=== PATIENT | female | born 1990 | race Two or more races ===

== ENCOUNTER 2022-08-21 11:26 | Emergency (ER) | payer OTHER ==
[~2022-08-21] VITALS: Ht 154.9 cm; Wt 62.0 kg
[2022-08-21 11:26] VITALS: BP 101/57
[2022-08-21 12:39] LABS: BASO % 0.2 % (0.0-1.0); HEMATOCRIT 39.8 % (36.0-47.0); HEMOGLOBIN 12.9 g/dl (12.0-15.5); LYMPH # 0.8 10^3/uL (1.5-5.0); MEAN CORPUSCULAR HEMOGLOBIN 31.9 pg (27.0-33.0); MEAN CORPUSCULAR HGB CONC 32.4 g/dl (32.0-36.5); MEAN CORPUSCULAR VOLUME 98.3 fl (80.0-96.0); MONO # 0.3 10^3/uL (0.0-0.8); MONO % 5.6 % (2.0-8.0); NEUTROPHILS # 4.3 10^3/uL (1.5-8.5); PLATELET COUNT, AUTOMATED 326 10^3/uL (150-450); RED BLOOD COUNT 4.05 10^6/uL (4.00-5.40); WHITE BLOOD COUNT 5.4 10^3/uL (4.0-10.0)
[2022-08-21] MEDS ORDERED: NS 1,000 ML IV ONE (12:50)
[2022-08-21] MEDS ORDERED: ONDANSETRON 4MG 2ML VIAL IV ONE (12:50)
[2022-08-21] MEDS ORDERED: MORPHINE 2 MG/ML 1ML VIAL IV ONE (12:50)
[2022-08-21 13:09] LABS: LIPASE 27 U/L (12-53)
[2022-08-21 13:11] LABS: ALBUMIN 3.3 G/DL (3.2-5.2); ALKALINE PHOSPHATASE 29 U/L (46-116); ALT/SGPT 16 U/L (7.0-40); AST/SGOT 20 U/L (<34); BILIRUBIN,DIRECT 0.2 MG/DL (<0.4); BILIRUBIN,TOTAL 0.5 MG/DL (0.3-1.2); BLOOD UREA NITROGEN 13 MG/DL (9-23); CALCIUM LEVEL 8.6 MG/DL (8.5-10.1); CARBON DIOXIDE LEVEL 28 MMOL/L (20-31); CHLORIDE LEVEL 101 MMOL/L (98-107); CREATININE FOR GFR 0.83 MG/DL (0.55-1.30); GLOMERULAR FILTRATION RATE > 60.0 (>60); GLUCOSE, FASTING 96 MG/DL (60-100); POTASSIUM SERUM 4.2 MMOL/L (3.5-5.1); SODIUM LEVEL 137 MMOL/L (136-145); TOTAL PROTEIN 7.1 G/DL (5.7-8.2)
[2022-08-21] MEDS ORDERED: ISOVUE-370 76% 100ML VIAL As Ordered ONE (13:25)
== END 2022-08-21 15:01 | disposition home or self-care (01) ==
LOC: M ED 11:26
DX: K52.9 Noninfective gastroenteritis and colitis, unspecified (principal)
CPT/HCPCS: 74177; 80048; 80076; 81025; 83690; 84702; 85025; 96361; 96374; 99284; J2270; J2405

== ENCOUNTER 2023-04-29 09:34 | Outpatient (CLI) | payer OTHER ==
[~2023-04-29] VITALS: Ht 157.5 cm; Wt 70.1 kg
[2023-04-29 10:11] VITALS: BP 132/67; O2SAT 97
[2023-04-29] MEDS ORDERED: ONDA4TAB6 PO (10:51)
[2023-04-29] MEDS ORDERED: TUMS500C PO (10:51)
[2023-04-29] MEDS ORDERED: ACET-897 PO (10:51)
[2023-04-29] MEDS ORDERED: PRENTAB9 PO (10:51)
[2023-04-29] MEDS ORDERED: HOME MED LIST COMPLETE! XX SCH (10:55)
[2023-04-29] MEDS ORDERED: ONDANSETRON 4MG 2ML VIAL IV ONE (11:00)
[2023-04-29] MEDS ORDERED: MULTIVITAMIN -ADULT INJECTION 10 ML, THIAMINE INJection 100 MG, FOLIC ACID 1 MG in NS 1... IV ONE (12:00)
== END 2023-04-29 15:10 | disposition home or self-care (01) ==
LOC: M LDO 09:34
PROVIDERS: ATTEND Obstetrics & Gynecology
DX: O99.612 Diseases of the digestive system complicating pregnancy, second trimester (principal); K52.9 Noninfective gastroenteritis and colitis, unspecified; O21.8 Other vomiting complicating pregnancy; Z3A.20 20 weeks gestation of pregnancy; O99.352 Diseases of the nervous system complicating pregnancy, second trimester; G43.909 Migraine, unspecified, not intractable, without status migrainosus; Z79.899 Other long term (current) drug therapy; Z88.6 Allergy status to analgesic agent
CPT/HCPCS: 96374; J2405; J3411

== ENCOUNTER 2023-08-11 12:51 | Outpatient (CLI) | payer OTHER ==
[~2023-08-11] VITALS: Ht 157.5 cm; Wt 75.7 kg
[~2023-08-11 12:51] MED LIST: ACET-897 PO; ONDA4TAB6 PO; PRENTAB9 PO; TUMS500C PO
[2023-08-11] MEDS ORDERED: FAMO20TA PO (13:12)
[2023-08-11] MEDS ORDERED: ACET325C5 PO (13:12)
[2023-08-11 13:13] VITALS: BP 129/70
[2023-08-11] MEDS ORDERED: HOME MED LIST COMPLETE! XX SCH (13:15)
[2023-08-11] MEDS ORDERED: ACETAMINOPHEN 500 MG TAB PO ONE (15:10)
[2023-08-11] MEDS ORDERED: FLUCONAZOLE 50MG TABLET PO ONE (15:10)
== END 2023-08-11 15:32 | disposition home or self-care (01) ==
LOC: M LDO 12:51
PROVIDERS: ATTEND Advanced Practice Midwife
DX: O23.593 Infection of other part of genital tract in pregnancy, third trimester (principal); O47.03 False labor before 37 completed weeks of gestation, third trimester; Z3A.34 34 weeks gestation of pregnancy; Z88.6 Allergy status to analgesic agent
CPT/HCPCS: 59025; 81001; 87081; G0463

== ENCOUNTER 2023-09-09 15:20 | Inpatient (IN) | payer OTHER ==
[~2023-09-09] VITALS: Ht 157.5 cm; Wt 76.9 kg
[2023-09-09] VITALS (9 sets, daily range): BP systolic 104–135; BP diastolic 58–85
[~2023-09-09 15:20] MED LIST changes: +ACET325C5 PO; +FAMO20TA PO
[2023-09-09] MEDS ORDERED: HOME MED LIST COMPLETE! XX SCH (15:45)
[2023-09-09] MEDS ORDERED: LACTATED RINGER'S 1000 ML IV STA (17:42)
[2023-09-09] MEDS ORDERED: FAMOTIDINE IV BAG 20 MG in IV 1 EA IV PRN (17:45)
[2023-09-09] MEDS ORDERED: CARBOPROST TROMETHAMINE 250 MCG/ML AMP IM PRN (17:45)
[2023-09-09] MEDS ORDERED: METHYLERGONOVINE MALEATE 0.2MG/ML 1ML VIAL IM PRN (17:45)
[2023-09-09] MEDS ORDERED: LIDOCAINE 1% MDV 20ML VIAL INFIL PRN (17:45)
[2023-09-09] MEDS ORDERED: ALBUTEROL 90 MCG/ACT 8GM HFA INHALER INH PRN (17:45)
[2023-09-09] MEDS ORDERED: OXYTOCIN DRIP 30 UNITS in IV 1 EA IV PRN ×6 (17:45)
[2023-09-09] MEDS ORDERED: LR 1,000 ML IV SCH ×2 (17:45→20:50)
[2023-09-09] MEDS ORDERED: TRANEXAMIC ACID INJection 1,000 MG in NS 100 ML IV PRN (17:45)
[2023-09-09] MEDS ORDERED: OXYTOCIN INJ 10UNITS/ML 1ML VIAL IM PRN (17:45)
[2023-09-09 18:27] LABS: HEMATOCRIT 29.8 % (36.0-47.0); HEMOGLOBIN 9.6 g/dl (12.0-15.5); MEAN CORPUSCULAR HGB CONC 32.2 g/dl (32.0-36.5); MEAN CORPUSCULAR VOLUME 93.1 fl (80.0-96.0); PLATELET COUNT, AUTOMATED 269 10^3/uL (150-450); WHITE BLOOD COUNT 7.1 10^3/uL (4.0-10.0)
[2023-09-09] MEDS ORDERED: OXYTOCIN DRIP 30 UNITS in IV 1 EA IV SCH (20:50)
[2023-09-09] MEDS ORDERED: NALBUPHINE HCL 1MG/0.1ML (100MG/10ML) MDV IV ONE (22:20)
[2023-09-09] MEDS ORDERED: NALBUPHINE HCL 1MG/0.1ML (100MG/10ML) MDV IV PRN (22:20)
[2023-09-10] VITALS (13 sets, daily range): BP systolic 104–132; BP diastolic 55–87; O2SAT 96–97
[2023-09-10] MEDS ORDERED: ONDANSETRON 4MG 2ML VIAL IV PRN ×2 (00:45→02:35)
[2023-09-10] MEDS ORDERED: ePHEDrine SULFATE 25 MG/5 ML(5MG/ML) SYRINGE IVP PRN (00:45)
[2023-09-10] MEDS ORDERED: EPIDURAL/PCA KEYS XX PRN (00:45)
[2023-09-10] MEDS ORDERED: diphenhydrAMINE 50MG/ML VIAL IV ONE (00:45)
[2023-09-10] MEDS ORDERED: diphenhydrAMINE 50MG/ML VIAL IV PRN (00:45)
[2023-09-10] MEDS ORDERED: LR 500 ML IV PRN (00:45)
[2023-09-10] MEDS ORDERED: NALOXONE INJ 0.4MG/1ML VIAL IV PRN (00:45)
[2023-09-10] MEDS ORDERED: FENTANYL/ROPIVACAINE/NACL BAG 100 ML EPIDURAL SCH (00:45)
[2023-09-10] MEDS ORDERED: LIDOCAINE 2% 100MG/5ML SDV (FOR ANES.) As Ordered ONE (01:52)
[2023-09-10] MEDS ORDERED: DOCUSATE SODIUM 100MG CAPSULE PO PRN (02:35)
[2023-09-10] MEDS ORDERED: LR 1,000 ML IV SCH (02:35)
[2023-09-10] MEDS ORDERED: ACETAMINOPHEN TAB 650MG DOSE (2X325MG) PO PRN (02:35)
[2023-09-10] MEDS ORDERED: OXYTOCIN DRIP 30 UNITS in IV 1 EA IV SCH ×4 (02:35)
[2023-09-10] MEDS ORDERED: RHOGAM 300MCG (1500IU) INJ IM SCH (02:35)
[2023-09-10] MEDS ORDERED: DIBUCAINE 1% OINTMENT 30GM TOP PRN (02:35)
[2023-09-10] MEDS ORDERED: METHYLERGONOVINE MALEATE 0.2 MG TAB PO PRN (02:35)
[2023-09-10] MEDS ORDERED: IBUPROFEN 800 MG TAB PO PRN (02:35)
[2023-09-10] MEDS ORDERED: IBUPROFEN 600MG TAB PO PRN (02:35)
[2023-09-10] MEDS: ACETAMINOPHEN 500 MG TAB PO PRN ×3 (07:12→21:04)
[2023-09-10] MEDS: PRENATAL VITAMINS CHEWABLE TABLET PO SCH (10:19)
[2023-09-11] MEDS: IBUPROFEN 800 MG TAB PO PRN ×2 (00:14→08:03)
[2023-09-11] MEDS ORDERED: FAMOTIDINE 20 MG TAB PO PRN (01:50)
[2023-09-11 06:00] VITALS: BP 107/57; O2SAT 98
[2023-09-11] MEDS: PRENATAL VITAMINS CHEWABLE TABLET PO SCH ×2 (08:03→08:05)
[2023-09-12] MEDS ORDERED: MEASLES,MUMPS,RUBELLA VACCINE INJ (MMR-II) SC.IMMUN ONE (09:00)
== END 2023-09-11 12:42 | disposition home or self-care (01) | DRG 807 ==
LOC: M LDO 15:20 → M LDI 17:42 → M OBS 09-10 03:45
PROVIDERS: ADMIT Obstetrics & Gynecology; ATTEND Obstetrics & Gynecology
PROC: 10E0XZZ Delivery of Products of Conception, External Approach (ICD-10-PCS; principal; 2023-09-10)
DX: O99.02 Anemia complicating childbirth (principal); Z37.0 Single live birth; Z3A.39 39 weeks gestation of pregnancy; D55.0 Anemia due to glucose-6-phosphate dehydrogenase [G6PD] deficiency

== ENCOUNTER → 2024-03-26 | Outpatient (CLI) | payer OTHER ==
[~2024-03-26] MED LIST changes: +ONDA-282 PO; -ONDA4TAB6 PO
== END ==
LOC: M RAD 10:40
PROVIDERS: ATTEND General Practice
DX: R20.2 Paresthesia of skin (principal); G56.00 Carpal tunnel syndrome, unspecified upper limb

== ENCOUNTER 2024-10-20 10:48 | Emergency (ER) | payer OTHER ==
[~2024-10-20] VITALS: Ht 157.5 cm; Wt 71.9 kg
[2024-10-20] MEDS ORDERED: FLUO-365 (10:59)
[2024-10-20] MEDS ORDERED: DROS4TAB (10:59)
[2024-10-20] MEDS ORDERED: SPIR50TA4 (10:59)
[2024-10-20] MEDS: diphenhydrAMINE 50MG/ML VIAL IV ONE (12:05)
[2024-10-20] MEDS: methylPREDNISolone 125MG 2ML VIAL IV ONE (12:05)
[2024-10-20] MEDS ORDERED: FAMOTIDINE 20MG/2ML VIAL IVP ONE (12:20)
[2024-10-20 12:24] LABS: HEMATOCRIT 34.3 % (36.0-47.0); HEMOGLOBIN 11.2 g/dl (12.0-15.5); MEAN CORPUSCULAR HEMOGLOBIN 32.3 pg (27.0-33.0); MEAN CORPUSCULAR HGB CONC 32.7 g/dl (32.0-36.5); MEAN CORPUSCULAR VOLUME 98.8 fl (80.0-96.0); PLATELET COUNT, AUTOMATED 331 10^3/uL (150-450); RED BLOOD COUNT 3.47 10^6/uL (4.00-5.40); WHITE BLOOD COUNT 5.3 10^3/uL (4.0-10.0)
[2024-10-20 12:44] LABS: ALBUMIN 3.4 G/DL (3.2-5.2); ALKALINE PHOSPHATASE 56 U/L (35-104); ALT/SGPT 11 U/L (7.0-40); AST/SGOT 11 U/L (<34); BILIRUBIN,TOTAL 0.4 MG/DL (0.3-1.2); BLOOD UREA NITROGEN 11 MG/DL (9-23); CALCIUM LEVEL 8.8 MG/DL (8.5-10.1); CARBON DIOXIDE LEVEL 30 MMOL/L (20-31); CHLORIDE LEVEL 108 MMOL/L (98-107); CREATININE FOR GFR 0.72 MG/DL (0.55-1.30); GLOMERULAR FILTRATION RATE > 60.0 (>60); GLUCOSE, FASTING 94 MG/DL (60-100); POTASSIUM SERUM 4.4 MMOL/L (3.5-5.1); SODIUM LEVEL 143 MMOL/L (136-145)
[2024-10-20] MEDS: FAMOTIDINE 20 MG TAB PO ONE (13:35)
[2024-10-20] MEDS ORDERED: PRED10TA2 PO (14:25)
[2024-10-20 14:30] VITALS: BP 111/53; TEMP 97.6; O2SAT 99
== END 2024-10-20 14:44 | disposition home or self-care (01) ==
LOC: M ED 10:48
DX: T80.52XA Anaphylactic reaction due to vaccination, initial encounter (principal); R21 Rash and other nonspecific skin eruption; E28.2 Polycystic ovarian syndrome; Z88.6 Allergy status to analgesic agent; Z79.52 Long term (current) use of systemic steroids; Z79.899 Other long term (current) drug therapy
CPT/HCPCS: 80053; 85027; 96374; 99284; J1200; J2919